=== PATIENT | female | born 1945 | race Caucasian/White ===

== ENCOUNTER 2018-08-05 21:44 | Inpatient (IN) | payer OTHER, MEDICARE ==
[2018-08-05 23:55] LABS: ALT (SGPT) 20 U/L (8-55); AST (SGOT) 29 U/L (5-34); Alkaline Phosphatase 77 U/L (40-150); Anion Gap 16 mmol/L (10-20); BUN (Urea Nitrogen) 12 mg/dL (9.8-20.1); Bilirubin, Total 0.6 mg/dL (0.2-1.2); Calc. Creatinine Clearance 0 mL/min (70-130); Calcium 9.5 mg/dL (7.8-10.44); Carbon Dioxide 27 mmol/L (23-31); Chloride 103 mmol/L (98-107); Estimated GFR-MDRD 85; Globulin 2.8 g/dL (2.4-3.5); Glucose 93 mg/dL (83-110); Potassium 3.7 mmol/L (3.5-5.1); Protein, Total 6.8 g/dL (6.0-8.3); Sodium 142 mmol/L (136-145)
[2018-08-06] MEDS ORDERED: Morphine 4 MG/ML VIAL ONE (01:10)
[2018-08-06 02:31] VITALS: BMI 27.0
[2018-08-06] MEDS ORDERED: Ondansetron ODT 4 MG TAB SL PRN (02:46)
[2018-08-06] MEDS ORDERED: Ondansetron HCl/PF 4 MG/2 ML Vial IVP PRN (02:46)
[2018-08-06] MEDS ORDERED: Sodium Chloride 0.9% 1,000 ML IV SCH ×2 (02:46→08:00)
[2018-08-06] MEDS ORDERED: Acetaminophen 325 MG TAB PO PRN ×2 (02:46→07:49)
[2018-08-06] MEDS ORDERED: HYDROcodone/Acetaminophen 5/325 mg Tablet PO PRN ×2 (02:46)
[2018-08-06] MEDS ORDERED: Morphine 4 MG/ML VIAL IV PRN (02:48)
[2018-08-06] MEDS ORDERED: Senokot 8.6 MG TAB PO PRN (07:49)
[2018-08-06] MEDS ORDERED: Loperamide HCl 2 MG CAP PO PRN (07:49)
[2018-08-06] MEDS ORDERED: Sodium Chloride 0.65% Nasal 44 ML BOT EA NARE PRN (07:49)
[2018-08-06] MEDS ORDERED: Diabetic Tussin 200 MG/10 ML UDCUP PO PRN (07:49)
[2018-08-06] MEDS ORDERED: Eucerin (Mineral Oil/Petrolatum,White) 30 gm Jar TOP PRN (07:49)
[2018-08-06] MEDS ORDERED: Loratadine 10 MG TAB PO PRN (07:49)
[2018-08-06] MEDS ORDERED: Mag-Al 1200 mg/1200 mg/30 ML UDCUP PO PRN (07:49)
[2018-08-06] MEDS ORDERED: Zolpidem Tartrate 5 MG TAB PO PRN (07:49)
[2018-08-06] MEDS ORDERED: Chloraseptic Spray 180 ml Bottle PO PRN (07:49)
[2018-08-06] MEDS ORDERED: Milk Of Magnesia 30 ML UDCUP PO PRN (07:49)
[2018-08-06] MEDS ORDERED: Artificial Tears 18 DROP/0.9 ML EA EYE PRN (07:49)
[2018-08-06] MEDS ORDERED: Morphine 4 MG/ML Carpuject SLOW IVP PRN (07:53)
[2018-08-06] MEDS: Atenolol 50 MG TAB PO SCH (08:18)
[2018-08-06] MEDS: Lisinopril/Hydrochlorothiazide 20 mg/12.5 mg Tablet PO SCH (08:19)
[2018-08-06] MEDS: Rosuvastatin 5 MG TAB PO SCH (09:09)
--- NOTE | 2018-08-06 12:21 | HP ---
PRIMARY CARE PHYSICIAN: City call admission. REASON FOR ADMISSION: Transfer from [facility] for mediastinal and abdominal mass. HISTORY OF PRESENT ILLNESS: A 73-year-old female who has underlying history of hypertension and dysl ipidemia. She was having vague upper abdominal pain for about a week. She reports that pain started last Tuesday, which was gradually getting worse over the weekend. The patient saw her primary care arianna garcia on Tuesday and she was given some antacids. The patient was not improving and that is why she went again on Tuesday and she was given another antacid prescriptions. Patient did not have any improvement and she was instructed that if pain is getting worse, then she needs to come to emergency room for evaluation. Patient did not have any constipation, diarrhea. She denies any UTI symptoms. She denies any urinar y symptoms. She denies any back pain. She denies any chest pain, palpitations, shortness of breath. She denies any night sweats. She denies any weight loss. She denies any lower extremity edema. The patient is feeling up to her normal. She is only smoking 2-3 cigarettes on a daily basis. Last night, the patient was evaluated at [facility] where patient had CT of the abdomen and p brandin, which showed 10 x 7 x 7 cm mediastinal mass, possibly subcarinal renal mass versus enlarged ly mph node, 3.1 cm and there was abdominal large hypodense mass in maximilian hepatis extending into gastroh epatic ligament, which is 5.5 x 5 cm and two other masses 2.4 cm in uncinate process of the pancreas as well as right adnexa. Patient was admitted to oncology floor. The patient's pain was controlled. REVIEW OF SYSTEMS: The following complete review of systems was negative, unless otherwise mentioned in the HPI or below: Constitutional: Weight loss or gain, ability to conduct usual activities. Skin: Rash, itching. Eyes: Double vision, pain. ENT/Mouth: Nose bleeding, neck stiffness, pain, tenderness. Cardiovascular: Palpitations, dyspnea on exertion, orthopnea. Respiratory: Shortness of breath, wheezing, cough, hemoptysis, fever or night sweats. Gastrointestinal: Poor appetite, abdominal pain, heartburn, nausea, vomiting, constipation, or diarr hea. Genitourinary: Urgency, frequency, dysuria, nocturia. Musculoskeletal: Pain, swelling. Neurologic/Psychiatric: Anxiety, depression. Allergy/Immunologic: Skin rash, bleeding tendency. Please see my HPI for pertinent positive and negative. All other review of systems reviewed and nega tive except as mentioned in the HPI. ALLERGIES: No known drug allergy. CURRENT HOME MEDICATIONS: Atenolol 100 mg p.o. daily, hydrochlorothiazide 12.5 mg p.o. daily, Cresto r 10 mg p.o. daily. PAST MEDICAL HISTORY: History of diverticulitis and diverticulosis, hypertension, dyslipidemia. PAST SURGICAL HISTORY: Partial hysterectomy, appendicectomy, tonsillectomy, colonoscopy and polypect dionne. PAST PSYCHIATRIC HISTORY: Reviewed and negative. SOCIAL HISTORY: Patient smokes about 2-3 cigarettes on a daily basis. She denies any alcohol abuse. She denies any other illicit drug abuse. She lives at home with family. FAMILY HISTORY: No strong family history of premature coronary artery disease, stroke or cancer. EMERGENCY ROOM COURSE: The patient was given morphine 4 mg at [facility], IV fluid, Zofran a nd potassium chloride. PHYSICAL EXAMINATION: VITAL SIGNS: On arrival, blood pressure 192/99, pulse 81, respiratory rate 18, temperature 97.7, sat uration 92% on room air, weight 72.5 kilograms. GENERAL: Patient is currently alert, awake, in no obvious acute distress. HEENT: Head: Normocephalic, atraumatic. Eyes: Pupils round, reactive to light. Extraocular muscl e intact. ENT: Oropharynx within normal limits. Moist mucous membranes. No oral lesion, no pharyn geal erythema, no exudate. NECK: Supple, no JVD, no thyromegaly, no carotid bruit, no jugular venous distention. LUNGS: Clear to auscultation without any rhonchi or rales. CARDIAC: S1, S2 regular. No murmur, no gallop, no rub. ABDOMEN: Soft, bowel sounds present. Some palpable mass noted in right upper quadrant, no peritonea l sign, no guarding, no rigidity, no rebound, no suprapubic tenderness. BACK: Unremarkable, no CVA tenderness. EXTREMITIES: Upper extremity, passive movement of all joints are normal. Lower extremity, no edema. Good distal pulsation. SKIN: No skin rash. HEMATOLOGICAL: No lymphadenopathy. PSYCHIATRIC: Normal affect. SIGNIFICANT LABORATORY DATA AND IMAGING: Blood tests done at [facility] reviewed by me. CT of the abdomen done at [facility] reported as 10 x 7 x 7 cm mediastinal mass, subcarinal mass , enlarged lymph node 3.1 cm, abdominal large hypodense mass at the maximilian hepatis which is 5.5 x 5 cm , 2.4 cm uncinate process mass in pancreas, right adnexal mass. CBC: WBC 11.6, hemoglobin 15.1, platelet 246. BMP: Sodium 140, potassium 2.9, chloride 100, carbon dioxide 26, anion gap 17, glucose 97, BUN 18, creatinine 0.7, bilirubin 0.6, AST 28, ALT 26, alkalin e phosphatase 73, protein 6.9, albumin 3.9, lipase 112. CK 60, CK-MB 2.1, troponin 0.010. Urinalysi s, blood moderate. ASSESSMENT AND PLAN: 1. Abdominal pain likely due to multiple abdominal mass. 2. Mediastinal mass with lymphadenopathy. 3. Multiple abdominal mass. 4. Hypertension. 5. Hypokalemia. 6. Dyslipidemia. DISCUSSION: This patient has a mediastinal mass as well as upper abdominal mass as well as lymphaden opathy. At this point, suspecting for lymphoma, metastatic disease is also possible from lymphoma. Differential diagnosis is very vague. At this point, we will consult Oncology. This patient will ne ed a tissue biopsy for definitive diagnosis. We will check LDH, CBC, CMP, flow cytometry, serum prot ein electrophoresis. We will keep her n.p.o. after midnight for possible biopsy. We will check hepa titis profile. We will resume patient's home medication and replace potassium. Deep venous thrombosis prophylaxis. Sequential compression devices boots. Gastrointestinal prophyla xis, Protonix 40 mg p.o. daily. CODE STATUS: The patient is FULL CODE. The patient is making her decision by herself. Her daughter is surrogate decision maker. Disposition plan based on clinical course. If patient needs more hospitalization for diagnostic reas on, then we may consider changing to inpatient status.
[2018-08-06] MEDS: NS 0.9% w/ 20 MEQ KCL 1,000 ML/1,000 ML BAG IV SCH (12:54)
[2018-08-06] MEDS: hydrALAZINE 20 MG/ML VIAL SLOW IVP PRN (16:50)
[2018-08-07] MEDS: NS 0.9% w/ 20 MEQ KCL 1,000 ML/1,000 ML BAG IV SCH (01:21)
[2018-08-07 04:29] LABS: #Eosinphils 0.1 thou/uL (0.0-0.7); #Lymphocytes 1.1 thou/uL (1.20-3.40); #Monocytes 0.9 thou/uL (0.11-0.59); #Neutrophils 7.3 thou/uL (1.40-6.50); %Basophils 0.2 % (0.0-1.0); %Eosinophils 1.5 % (0.0-10.0); %Lymphocytes 11.5 % (21.0-51.0); %Monocytes 9.1 % (0.0-10.0); %Neutrophils 77.7 % (42.0-75.0); Hemoglobin 12.8 g/dL (12.0-16.0); Mean Corpuscular HGB CONC 33.8 g/dL (32.0-36.0); Mean Corpuscular Volume 97.7 fL (78.0-98.0); Mean Platelet Volume 7.6 fL (7.4-10.4); Platelet Count 248 thou/uL (130-400); RBC Distribution Width 12.5 % (11.5-14.5); Red Blood Cell (RBC) Count 3.87 mill/uL (4.20-5.40); White Blood Cell (WBC) Count 9.4 thou/uL (4.8-10.8)
[2018-08-07 04:48] LABS: ALT (SGPT) 16 U/L (8-55); AST (SGOT) 22 U/L (5-34); Albumin 3.5 g/dL (3.4-4.8); Alkaline Phosphatase 64 U/L (40-150); Anion Gap 11 mmol/L (10-20); BUN (Urea Nitrogen) 12 mg/dL (9.8-20.1); Bilirubin, Total 0.6 mg/dL (0.2-1.2); Calc. Creatinine Clearance 88 mL/min (70-130); Calcium 9.3 mg/dL (7.8-10.44); Carbon Dioxide 29 mmol/L (23-31); Chloride 102 mmol/L (98-107); Estimated GFR-MDRD Greater than 90; Globulin 2.3 g/dL (2.4-3.5); Glucose 103 mg/dL (83-110); Potassium 3.1 mmol/L (3.5-5.1); Protein, Total 5.8 g/dL (6.0-8.3); Sodium 139 mmol/L (136-145)
[2018-08-07 04:52] LABS: INR-International Normal Ratio 0.9; Prothrombin Time 12.7 SEC (12.0-14.7)
[2018-08-07 04:54] LABS: PTT 22.8 SEC (22.9-36.1)
[2018-08-07 05:04] LABS: HBSAg Index 0.18 S/CO (0-0.99); Hep A IgM AB Non-Reactive (NonReactive); Hep A IgM S/CO 0.09 S/CO (0-0.79); Hep B Surf Ag Non-Reactive S/CO (NonReactive); Hep C IgG Ab Non-Reactive (NonReactive); Hep C Index 0.18 S/CO (0-0.79); Hepatitis B Core IGM Abs Non-Reactive (NonReactive)
[2018-08-07] MEDS: Morphine 4 MG/ML VIAL SLOW IVP PRN (06:17)
[2018-08-07] MEDS ORDERED: Potassium Chloride 20 MEQ/100 ML PREMIX BAG IVPB SCH (07:00)
--- NOTE | 2018-08-07 07:57 | CON ---
DATE OF CONSULTATION: 08/06/2018 REASON FOR CONSULTATION: Mediastinal and abdominal masses. HISTORY: This is a 73-year-old, previously quite healthy, female who noted bilateral upper abdominal pain 6 days ago. Gradually, this kept on getting worse in spite of treatment with antacid s. Eventually, she presented to [facility] emergency Room where CT scan of chest, abdomen, and pelvis showed a 10 x 7 x 7 cm mediastinal mass and a 5 x 5 cm mass in the maximilian hepatis area. A 2.4 cm mass was also noted in the uncinate process of the pancreas and right adnexa was quite promin ent. The patient was subsequently transferred to [facility]. She does not have any signifi cant symptoms other than the upper abdominal pain. She has not lost any weight and denies of night s weats and fever. There is no change in her bowel habits. Denies of headache and bone pain. The pat juni had a normal mammogram about a year ago and had colonoscopy during the past 12 months, which was negative except for polyps. She was asked to have a repeat colonoscopy in 3-5 years. OUTPATIENT MEDICATIONS: Atenolol 100 mg p.o. daily, hydrochlorothiazide 12.5 mg p.o. daily, and [place] tor 10 mg p.o. daily. PAST MEDICAL HISTORY: Positive for diverticulitis, hypertension, and dyslipidemia. PAST SURGICAL HISTORY: Include hysterectomy, appendectomy, tonsillectomy, and polypectomy from colon . PERSONAL, FAMILY AND SOCIAL HISTORY: Patient smoked 2-3 cigarettes daily. She does not drink, denie s recreational drug use. She lives at home with her family. REVIEW OF SYSTEMS: As above. PHYSICAL EXAMINATION: GENERAL: The patient appears appropriate for her age and is alert and oriented. She is in no acute distress at the time of this examination. VITAL SIGNS: Temperature 97.5, pulse 78, blood pressure 143/67, O2 saturation 91%. Height 5 feet an d 3.5 inches, weight 155 pounds. HEENT: Unremarkable. LYMPH NODES: Not palpable in cervical, supraclavicular, axillary, or inguinal area. CHEST: Clear to percussion and auscultation. HEART: Regular rhythm. S1 and S2. No murmur. BREASTS: Without mass or nipple retraction. ABDOMEN: Soft. No hepatosplenomegaly, no palpable masses. EXTREMITIES: Without pedal edema. LABORATORY DATA: CBC report not available in the chart at the time of this dictation. Chemistry pro file shows normal electrolytes, BUN, creatinine, glucose, calcium, and liver enzymes. LDH has not be en done. ASSESSMENT AND RECOMMENDATIONS: This patient definitely has some type of malignancy. The CT scan fr [facility] was reviewed with radiologist. The radiologist did not feel that he can put a needle in the mediastinum. The maximilian hepatis area mass could be potentially biopsiable. However, it is felt would be difficult with high risk of bleeding because would have to go through both right and left lo be of liver before we could access the upper abdominal mass with a biopsy needle. I will request sima hicks surgical consultation with Dr. Guzman to see if he is willing to biopsy the mediastinal mass via . The other option could be through a laparoscopic biopsy of the abdominal mass. I am not fabrizio e why the patient's CBC and other lab studies that were ordered are not on the chart. I will talk to lab about this issue in a few minutes. Thanks very much for asking me to participate in this patient's care. The patient will be followed b homa Klein.
[2018-08-07] MEDS: Atenolol 50 MG TAB PO SCH (08:55)
[2018-08-07] MEDS: Lisinopril/Hydrochlorothiazide 20 mg/12.5 mg Tablet PO SCH (08:55)
[2018-08-07] MEDS: Rosuvastatin 5 MG TAB PO SCH (08:56)
--- NOTE | 2018-08-07 10:07 | PDOC.PN ---
- Subjective Encounter Start Date: 08/07/18 Encounter Start Time: 07:10 -: old records requested/rev Patient seen and examined. No new complaints. No overnight events - Objective Resuscitation Status: Resuscitation Status FULL:Full Resuscitation MAR Reviewed: Yes Vital Signs & Weight: Vital Signs (12 hours) Temp Pulse Resp BP BP Pulse Ox 08/07/18 08:55 80 174/79 H 08/07/18 08:02 97.4 F L 80 174/79 H 92 L 08/07/18 05:42 90 L 08/07/18 04:39 97.4 F L 80 20 151/66 H 88 L 08/07/18 00:12 97.5 F L 77 20 129/62 86 L Weight Weight 155 lb 1 oz I&O: 08/06/18 08/07/18 08/08/18 06:59 06:59 06:59 Intake Total 600 4510 Balance 600 4510 Result Diagrams: 08/07/18 04:05 08/07/18 04:05 Phys Exam - Physical Examination Constitutional: NAD HEENT: PERRLA, moist MMs, sclera anicteric Neck: no JVD, supple Respiratory: no wheezing, no rales, no rhonchi Cardiovascular: RRR, no significant murmur, no rub Gastrointestinal: soft, non-tender, no distention, positive bowel sounds Musculoskeletal: no edema, pulses present Neurological: non-focal, normal sensation, moves all 4 limbs Lymphatic: no nodes Psychiatric: normal affect, A&O x 3 Skin: no rash, normal turgor Dx/Plan (1) Hypokalemia Code(s): E87.6 - HYPOKALEMIA Status: Acute (2) Lymphadenopathy Code(s): R59.1 - GENERALIZED ENLARGED LYMPH NODES Status: Acute (3) Mediastinal mass Status: Acute (4) Dyslipidemia Code(s): E78.5 - HYPERLIPIDEMIA, UNSPECIFIED Status: Chronic (5) Hypertension Code(s): I10 - ESSENTIAL (PRIMARY) HYPERTENSION Status: Chronic (6) Tobacco abuse Code(s): Z72.0 - TOBACCO USE Status: Chronic - Plan cont current plan of care, plan discussed w/ family * medication reviewed as below * symptomatic treatment. * change to inpt status * consult surgery for tissue biopsy * discussed with oncology * replace potassium Review of Systems - Review of Systems ENT: negative: Ear Pain, Ear Discharge, Nose Pain, Nose Discharge, Nose Congestion, Mouth Pain, Mouth Swelling, Throat Pain, Throat Swelling, Other Respiratory: negative: Cough, Dry, Shortness of Breath, Hemoptysis, SOB with Excertion, Pleuritic Pain, Sputum, Wheezing Cardiovascular: negative: chest pain, palpitations, orthopnea, paroxysmal nocturnal dyspnea, edema, light headedness, other Gastrointestinal: negative: Nausea, Vomiting, Abdominal Pain, Diarrhea, Constipation, Melena, Hematochezia, Other Genitourinary: negative: Dysuria, Frequency, Incontinence, Hematuria, Retention , Other Musculoskeletal: negative: Neck Pain, Shoulder Pain, Arm Pain, Back Pain, Hand Pain, Leg Pain, Foot Pain, Other Skin: negative: Rash, Lesions, Tyler, Bruising, Other - Medications/Allergies Allergies/Adverse Reactions: Allergies Allergy/AdvReac Type Severity Reaction Status Date / Time No Known Allergies Allergy Unverified 08/06/18 02:45 Medications: Current Medications Acetaminophen (Tylenol) 650 mg PO Q4H PRN PRN Reason: Headache/Fever or Pain Hydrocodone Bitart/Acetaminophen ([place] 10/325) 1 tab PO Q4H PRN PRN Reason: Moderate Pain (4-6) Al Hydroxide/Mg Hydroxide (Maalox) 30 ml PO Q6H PRN PRN Reason: Heartburn or Indigestion Artificial Tears (Tears Naturale) 0 drop EA EYE PRN PRN PRN Reason: Dry Eyes Atenolol (Tenormin) 100 mg PO DAILY [facility] Last Admin: 08/07/18 08:55 Dose: 100 mg Guaifenesin (Robitussin Sf) 200 mg PO Q4H PRN PRN Reason: Cough Lisinopril/HCTZ (Prinizide 20-12.5) 1 tab PO DAILY [facility] Last Admin: 08/07/18 08:55 Dose: 1 tab Hydralazine HCl (Apresoline) 10 mg SLOW IVP Q4H PRN PRN Reason: Systolic BP > 180 Last Admin: 08/06/18 16:50 Dose: 10 mg Potassium Chloride/Sodium Chloride (Ns 0.9% W/ 20 Meq Kcl) 1,000 ml in 1,000 mls @ 75 mls/hr IV .[id number] [facility] Last Admin: 08/07/18 01:21 Dose: 1,000 mls Loperamide HCl (Imodium) 2 mg PO PRN PRN PRN Reason: Diarrhea/Loose Stools Loratadine (Claritin) 10 mg PO DAILYPRN PRN PRN Reason: Sinus Symptoms Magnesium Hydroxide (Milk Of Magnesium) 30 ml PO DAILYPRN PRN PRN Reason: Constipation Mineral Oil/White Petrolatum (Eucerin Cream) 0 gm TOP BIDPRN PRN PRN Reason: Dry Skin Morphine Sulfate (Morphine) 4 mg SLOW IVP Q4H PRN PRN Reason: Pain Last Admin: 08/07/18 06:17 Dose: 4 mg Pantoprazole Sodium (Protonix) 40 mg PO DAILY [facility] Last Admin: 08/07/18 08:56 Dose: 40 mg Phenol (Chloraseptic [place] 180 Ml Bot) 0 ml PO PRN PRN PRN Reason: Sore Throat Rosuvastatin Calcium (Crestor) 5 mg PO DAILY [facility] Last Admin: 08/07/18 08:56 Dose: 5 mg Senna (Senokot) 2 tab PO HSPRN PRN PRN Reason: Constipation Sodium Chloride (Flush - Normal Saline) 10 ml IVF Q12HR [facility] Last Admin: 08/07/18 08:56 Dose: 10 ml Sodium Chloride (Flush - Normal Saline) 10 ml IVF PRN PRN PRN Reason: Saline Flush Sodium Chloride ([place] Nasal [place] 0.65%) 0 ml EA NARE QIDPRN PRN PRN Reason: Nasal Congestion Zolpidem Tartrate (Ambien) 5 mg PO HSPRN PRN PRN Reason: Insomnia
[2018-08-07] MEDS ORDERED: Potassium Chloride 20 MEQ TAB PO SCH (12:00)
--- NOTE | 2018-08-07 14:55 | CON ---
DATE OF CONSULTATION: 08/07/2018 REQUESTING PHYSICIAN: Dr. Brennan. CHIEF COMPLAINT: Epigastric pain. HISTORY OF PRESENT ILLNESS: The patient is a 73-year-old smoker who about a week or so ago began having epigastric discomfort. It radiated around the sides towards her back. She attempted to achieve relief with antacids to no avail, but over the weekend it gradually got bad enough that she presented to the hospital. CT scanning of the chest and abdomen demonstrated bulky adenopathy with one accumulation of lymph nodes in the upper abdomen around the aorta and one in the mediastinum. The patient about a week previously had some left hip and back pain with some sciatic type radicular symptoms on the left side that has since resolved after some injections and oral prednisone. She describes having had an outpatient MRI that showed a small compression fracture there. I do not have access at this time to that report or those films. PAST MEDICAL HISTORY: Significant for hypertension and hyperlipidemia and she has had a previous bout of diverticulitis. HOME MEDICATIONS: Atenolol 100 mg a day, hydrochlorothiazide 12.5 mg a day, and Crestor 10 mg a day. ALLERGIES: She denies any medical allergies. SOCIAL HISTORY: She describes minimal smoking currently. REVIEW OF SYSTEMS: Negative for any weight loss, any changing moles or noticing any masses anywhere other than the sciatic type pain she described. She denies any new aches or pains in her bones or joints. PHYSICAL EXAMINATION: GENERAL: She is in no distress. Height 5 feet 3-1/2 inches, 155 pounds. VITAL SIGNS: Heart rate is 80, blood pressure 174/79, room air sats are in the low 90s. NECK: She has no cervical or supraclavicular lymphadenopathy. CHEST: In the midline, her sternal notch seems somewhat prominent and fold that she says it feels normal to her. PELVIC: She has no point tenderness in her lower back or left hip. IMAGING: Her CT scan show a bulky periaortic adenopathy in the upper abdomen and mediastinal adenopathy extending from the akbar up to the right peritracheal region at the upper portion of the chest without any obvious lung masses. LABORATORY DATA: She has a white count of 9.4, hemoglobin 12.8, hematocrit 37.8 , platelet count 248,000. PT is 12.7 with INR 0.9 and a PTT of 22.8. Chemistries show normal electrolytes, BUN 12, creatinine 0.68. Normal liver function studies. Albumin of 4.0. IMPRESSION AND PLAN: Probable malignancy, I think cervical mediastinal approach would probably give the easiest access to obtain enough tissue to establish a tissue diagnosis and potentially Port-A-Cath placement to the patient and her daughter. MTDD
[2018-08-07] MEDS: hydrALAZINE 20 MG/ML VIAL SLOW IVP PRN (17:15)
[2018-08-08] MEDS: Morphine 4 MG/ML VIAL SLOW IVP PRN (00:06)
[2018-08-08] MEDS: Lisinopril/Hydrochlorothiazide 20 mg/12.5 mg Tablet PO SCH (07:30)
[2018-08-08] MEDS: Atenolol 50 MG TAB PO SCH (07:30)
[2018-08-08] MEDS: Rosuvastatin 5 MG TAB PO SCH (07:30)
[2018-08-08] MEDS ORDERED: Fentanyl 100 MCG/2 ML VIAL ONE (08:06)
[2018-08-08] MEDS ORDERED: Midazolam HCl 2 mg/2 ml Vial ONE (08:06)
[2018-08-08] MEDS ORDERED: SUGAMMADEX SODIUM 500 MG/5 ML VIAL ONE (09:41)
[2018-08-08] MEDS ORDERED: SUGAMMADEX SODIUM 200 MG/2 ML VIAL ONE (09:42)
--- NOTE | 2018-08-08 09:58 | PDOC.PN ---
- Subjective Encounter Start Date: 08/08/18 Encounter Start Time: 09:57 Patient seen and examined. No new complaints. No overnight events plan for surgical biopsy today - Objective Resuscitation Status: Resuscitation Status FULL:Full Resuscitation MAR Reviewed: Yes Vital Signs & Weight: Vital Signs (12 hours) Temp Pulse Resp BP Pulse Ox 08/08/18 07:40 97.6 F 70 20 136/68 92 L 08/08/18 07:30 72 08/08/18 04:43 97.8 F 72 20 145/71 H 88 L 08/08/18 02:34 91 L 08/07/18 23:58 97.7 F 74 16 148/72 H 90 L Weight Weight 155 lb 1 oz I&O: 08/07/18 08/08/18 08/09/18 06:59 06:59 06:59 Intake Total 4510 1260 Balance 4510 1260 Result Diagrams: 08/07/18 04:05 08/07/18 04:05 Phys Exam - Physical Examination Constitutional: NAD HEENT: PERRLA, moist MMs, sclera anicteric Neck: no JVD, supple Respiratory: no wheezing, no rales, no rhonchi Cardiovascular: RRR, no significant murmur, no rub Gastrointestinal: soft, non-tender, no distention, positive bowel sounds Musculoskeletal: no edema, pulses present Neurological: non-focal, normal sensation, moves all 4 limbs Psychiatric: normal affect, A&O x 3 Skin: no rash, normal turgor Dx/Plan (1) Hypokalemia Code(s): E87.6 - HYPOKALEMIA Status: Acute (2) Lymphadenopathy Code(s): R59.1 - GENERALIZED ENLARGED LYMPH NODES Status: Acute (3) Mediastinal mass Status: Acute (4) Dyslipidemia Code(s): E78.5 - HYPERLIPIDEMIA, UNSPECIFIED Status: Chronic (5) Hypertension Code(s): I10 - ESSENTIAL (PRIMARY) HYPERTENSION Status: Chronic (6) Tobacco abuse Code(s): Z72.0 - TOBACCO USE Status: Chronic - Plan cont current plan of care * medication reviewed as below * symptomatic treatment * today surgical biopsy * monitor today post op * follow up on pathology report. Review of Systems - Review of Systems ENT: negative: Ear Pain, Ear Discharge, Nose Pain, Nose Discharge, Nose Congestion, Mouth Pain, Mouth Swelling, Throat Pain, Throat Swelling, Other Respiratory: negative: Cough, Dry, Shortness of Breath, Hemoptysis, SOB with Excertion, Pleuritic Pain, Sputum, Wheezing Cardiovascular: negative: chest pain, palpitations, orthopnea, paroxysmal nocturnal dyspnea, edema, light headedness, other Gastrointestinal: negative: Nausea, Vomiting, Abdominal Pain, Diarrhea, Constipation, Melena, Hematochezia, Other Genitourinary: negative: Dysuria, Frequency, Incontinence, Hematuria, Retention , Other Musculoskeletal: negative: Neck Pain, Shoulder Pain, Arm Pain, Back Pain, Hand Pain, Leg Pain, Foot Pain, Other Skin: negative: Rash, Lesions, Tyler, Bruising, Other - Medications/Allergies Allergies/Adverse Reactions: Allergies Allergy/AdvReac Type Severity Reaction Status Date / Time No Known Allergies Allergy Unverified 08/06/18 02:45 Medications: Current Medications Acetaminophen (Tylenol) 650 mg PO Q4H PRN PRN Reason: Headache/Fever or Pain Hydrocodone Bitart/Acetaminophen ([place] 10/325) 1 tab PO Q4H PRN PRN Reason: Moderate Pain (4-6) Al Hydroxide/Mg Hydroxide (Maalox) 30 ml PO Q6H PRN PRN Reason: Heartburn or Indigestion Artificial Tears (Tears Naturale) 0 drop EA EYE PRN PRN PRN Reason: Dry Eyes Atenolol (Tenormin) 100 mg PO DAILY [facility] Last Admin: 08/08/18 07:30 Dose: 100 mg Guaifenesin (Robitussin Sf) 200 mg PO Q4H PRN PRN Reason: Cough Lisinopril/HCTZ (Prinizide 20-12.5) 1 tab PO DAILY [facility] Last Admin: 08/08/18 07:30 Dose: 1 tab Hydralazine HCl (Apresoline) 10 mg SLOW IVP Q4H PRN PRN Reason: Systolic BP > 180 Last Admin: 08/07/18 17:15 Dose: 10 mg Loperamide HCl (Imodium) 2 mg PO PRN PRN PRN Reason: Diarrhea/Loose Stools Loratadine (Claritin) 10 mg PO DAILYPRN PRN PRN Reason: Sinus Symptoms Magnesium Hydroxide (Milk Of Magnesium) 30 ml PO DAILYPRN PRN PRN Reason: Constipation Mineral Oil/White Petrolatum (Eucerin Cream) 0 gm TOP BIDPRN PRN PRN Reason: Dry Skin Morphine Sulfate (Morphine) 4 mg SLOW IVP Q4H PRN PRN Reason: Pain Last Admin: 08/08/18 00:06 Dose: 4 mg Pantoprazole Sodium (Protonix) 40 mg PO DAILY [facility] Last Admin: 08/08/18 07:30 Dose: 40 mg Phenol (Chloraseptic [place] 180 Ml Bot) 0 ml PO PRN PRN PRN Reason: Sore Throat Rosuvastatin Calcium (Crestor) 5 mg PO DAILY [facility] Last Admin: 08/08/18 07:30 Dose: 5 mg Senna (Senokot) 2 tab PO HSPRN PRN PRN Reason: Constipation Sodium Chloride (Flush - Normal Saline) 10 ml IVF Q12HR [facility] Last Admin: 08/07/18 20:31 Dose: 10 ml Sodium Chloride (Flush - Normal Saline) 10 ml IVF PRN PRN PRN Reason: Saline Flush Sodium Chloride ([place] Nasal [place] 0.65%) 0 ml EA NARE QIDPRN PRN PRN Reason: Nasal Congestion Zolpidem Tartrate (Ambien) 5 mg PO HSPRN PRN PRN Reason: Insomnia
--- NOTE | 2018-08-08 10:32 | RAD ---
CHEST ONE VIEW: History: 73-year-old female with history of status post CME. FINDINGS: Heart size is within normal limits. There is evidence for a superior mediastinal mass with nodular fu llness in the right paratracheal region. There is some atherosclerosis of the aorta. NO confluent pne umonia, overt edema, or pleural effusion. IMPRESSION: Evidence for a right sided mediastinal mass. Further evaluation with CT scan is suggested. No old enedelia dies. Code T
--- NOTE | 2018-08-08 10:51 | OP ---
DATE OF PROCEDURE: 08/08/2018 PROCEDURE PERFORMED: Cervical/mediastinal exploration. PREOPERATIVE DIAGNOSIS: Mediastinal lymphadenopathy. 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 SURGEON: Erick Gerard M.D. ANESTHESIA: General endotracheal. INDICATIONS: The patient is a 73-year-old smoker, who presented with epigastric discomfort. She was found to have bulky mediastinal adenopathy as well as bulky periaortic adenopathy in her upper abdom en. She is now taken to the operating room for a CME to establish a tissue diagnosis. FINDINGS: Bulky adenopathy. 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 NARRATIVE REPORT: After informed consent was obtained, the patient was taken to the operating room a nd placed in supine position on the operating table. After the induction of general anesthesia, the patient's neck was extended and her neck and chest were prepped and draped in sterile fashion. A cur vilinear incision was made transversely about a fingerbreadth above the sternal notch. It was kecia d through the subcutaneous tissue and platysma with the electrocautery. The strap muscles were divid ed longitudinally in the midline. The pretracheal space was developed first sharply and then with bl unt dissection. Mediastinoscope was inserted and bulky adenopathy in the right anterolateral paratra cheal position was immediately encountered. Blunt dissection was used to free up 1 lymph node from t he rest of the matted mass, augmented with the suction cautery. Biopsy forceps were then used to pie cemeal extract that lymph node. The wound was inspected for gross hemostasis and then packed off whi le the specimen was sent out to and examined by the pathologist. The packing was removed, and when t he pathologist confirmed that there was sufficient viable material for study, the wound was closed us ing 3-0 Vicryl, which was tacked back to the edge of the strap muscles and reapproximate the subcutan eous tissue. A 5-0 Vicryl subcuticular suture and Steri-Strips was used for the skin. The wound was dressed. The patient was then taken to the recovery area in stable condition.
[2018-08-08] MEDS ORDERED: Lidocaine 1% PF 5 ML VIAL ONE (13:55)
[2018-08-08] MEDS ORDERED: Dexamethasone 20 MG/5 ML VIAL ONE (13:55)
[2018-08-08] MEDS ORDERED: Vecuronium 10 MG VIAL ONE (13:55)
[2018-08-08] MEDS ORDERED: PHENYLEPHRINE-NS 100 MCG/ML 10 ML SYRINGE ONE (13:55)
[2018-08-08] MEDS ORDERED: PROPOFOL 200 MG/20 ML VIAL ONE (13:55)
[2018-08-09] MEDS: Lisinopril/Hydrochlorothiazide 20 mg/12.5 mg Tablet PO SCH (09:24)
[2018-08-09] MEDS: Polyethylene Glycol 3350 17 GM Packet PO SCH (09:24)
[2018-08-09] MEDS: Atenolol 50 MG TAB PO SCH (09:25)
[2018-08-09] MEDS: Metamucil PACK PO SCH (09:25)
[2018-08-09] MEDS: Rosuvastatin 5 MG TAB PO SCH (09:25)
[2018-08-09] MEDS: Docusate 100 MG CAP PO SCH (09:25)
--- NOTE | 2018-08-09 10:36 | PDOC.PN ---
- Subjective Encounter Start Date: 08/09/18 Encounter Start Time: 07:00 Patient seen and examined. No new complaints. No overnight events - Objective Resuscitation Status: Resuscitation Status FULL:Full Resuscitation MAR Reviewed: Yes Vital Signs & Weight: Vital Signs (12 hours) Temp Pulse Resp BP Pulse Ox 08/09/18 10:06 97.8 F 78 16 136/71 96 08/09/18 09:25 83 08/09/18 09:24 83 Weight Weight 155 lb 1 oz I&O: 08/08/18 08/09/18 08/10/18 06:59 06:59 06:59 Intake Total 1260 1960 Balance 1260 1960 Result Diagrams: 08/07/18 04:05 08/07/18 04:05 Phys Exam - Physical Examination Constitutional: NAD HEENT: PERRLA, moist MMs, sclera anicteric Neck: no JVD, supple Respiratory: no wheezing, no rales, no rhonchi Cardiovascular: RRR, no significant murmur, no rub Gastrointestinal: soft, non-tender, no distention, positive bowel sounds Musculoskeletal: no edema, pulses present Neurological: non-focal, normal sensation, moves all 4 limbs Lymphatic: no nodes Psychiatric: normal affect, A&O x 3 Skin: no rash, normal turgor Dx/Plan (1) Hypokalemia Code(s): E87.6 - HYPOKALEMIA Status: Acute (2) Lymphadenopathy Code(s): R59.1 - GENERALIZED ENLARGED LYMPH NODES Status: Acute (3) Mediastinal mass Status: Acute (4) Dyslipidemia Code(s): E78.5 - HYPERLIPIDEMIA, UNSPECIFIED Status: Chronic (5) Hypertension Code(s): I10 - ESSENTIAL (PRIMARY) HYPERTENSION Status: Chronic (6) Tobacco abuse Code(s): Z72.0 - TOBACCO USE Status: Chronic - Plan cont current plan of care * At this point, I would prefer her to stay until pathology reports come back and pt also prefer that way * based on pathology report, oncology to decide if chemotherapy/radiation needed * ? mediport needed ?? 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 Review of Systems - Review of Systems Eyes: negative: Pain, Vision Change, Conjunctivae Inflammation, Eyelid Inflammation, Redness, Other ENT: negative: Ear Pain, Ear Discharge, Nose Pain, Nose Discharge, Nose Congestion, Mouth Pain, Mouth Swelling, Throat Pain, Throat Swelling, Other Respiratory: negative: Cough, Dry, Shortness of Breath, Hemoptysis, SOB with Excertion, Pleuritic Pain, Sputum, Wheezing Cardiovascular: negative: chest pain, palpitations, orthopnea, paroxysmal nocturnal dyspnea, edema, light headedness, other Gastrointestinal: negative: Nausea, Vomiting, Abdominal Pain, Diarrhea, Constipation, Melena, Hematochezia, Other Genitourinary: negative: Dysuria, Frequency, Incontinence, Hematuria, Retention , Other Musculoskeletal: negative: Neck Pain, Shoulder Pain, Arm Pain, Back Pain, Hand Pain, Leg Pain, Foot Pain, Other Skin: negative: Rash, Lesions, Tyler, Bruising, Other - Medications/Allergies Allergies/Adverse Reactions: Allergies Allergy/AdvReac Type Severity Reaction Status Date / Time No Known Allergies Allergy Unverified 08/06/18 02:45 Medications: Current Medications Acetaminophen (Tylenol) 650 mg PO Q4H PRN PRN Reason: Headache/Fever or Pain Hydrocodone Bitart/Acetaminophen ([place] 10/325) 1 tab PO Q4H PRN PRN Reason: Moderate Pain (4-6) Al Hydroxide/Mg Hydroxide (Maalox) 30 ml PO Q6H PRN PRN Reason: Heartburn or Indigestion Artificial Tears (Tears Naturale) 0 drop EA EYE PRN PRN PRN Reason: Dry Eyes Atenolol (Tenormin) 100 mg PO DAILY [facility] Last Admin: 08/09/18 09:25 Dose: 100 mg Docusate Sodium (Colace) 100 mg PO DAILY [facility] Last Admin: 08/09/18 09:25 Dose: 100 mg Guaifenesin (Robitussin Sf) 200 mg PO Q4H PRN PRN Reason: Cough Lisinopril/HCTZ (Prinizide 20-12.5) 1 tab PO DAILY [facility] Last Admin: 08/09/18 09:24 Dose: 1 tab Hydralazine HCl (Apresoline) 10 mg SLOW IVP Q4H PRN PRN Reason: Systolic BP > 180 Last Admin: 08/07/18 17:15 Dose: 10 mg Loperamide HCl (Imodium) 2 mg PO PRN PRN PRN Reason: Diarrhea/Loose Stools Loratadine (Claritin) 10 mg PO DAILYPRN PRN PRN Reason: Sinus Symptoms Magnesium Hydroxide (Milk Of Magnesium) 30 ml PO DAILYPRN PRN PRN Reason: Constipation Mineral Oil/White Petrolatum (Eucerin Cream) 0 gm TOP BIDPRN PRN PRN Reason: Dry Skin Morphine Sulfate (Morphine) 4 mg SLOW IVP Q4H PRN PRN Reason: Pain Last Admin: 08/08/18 00:06 Dose: 4 mg Pantoprazole Sodium (Protonix) 40 mg PO DAILY [facility] Last Admin: 08/09/18 09:25 Dose: 40 mg Phenol (Chloraseptic [place] 180 Ml Bot) 0 ml PO PRN PRN PRN Reason: Sore Throat Polyethylene Glycol (Miralax) 17 gm PO DAILY [facility] Last Admin: 08/09/18 09:24 Dose: 17 gm Psyllium Hydrophilic Mucilloid (Metamucil) 1 pk PO DAILY [facility] Last Admin: 08/09/18 09:25 Dose: 1 pk Rosuvastatin Calcium (Crestor) 5 mg PO DAILY [facility] Last Admin: 08/09/18 09:25 Dose: 5 mg Senna (Senokot) 2 tab PO HSPRN PRN PRN Reason: Constipation Sodium Chloride (Flush - Normal Saline) 10 ml IVF Q12HR [facility] Last Admin: 08/08/18 23:57 Dose: Not Given Sodium Chloride (Flush - Normal Saline) 10 ml IVF PRN PRN PRN Reason: Saline Flush Sodium Chloride ([place] Nasal [place] 0.65%) 0 ml EA NARE QIDPRN PRN PRN Reason: Nasal Congestion Zolpidem Tartrate (Ambien) 5 mg PO HSPRN PRN PRN Reason: Insomnia
[2018-08-09] MEDS: HYDROcodone/Acetaminophen 10/325 mg Tablet PO PRN (19:44)
[2018-08-10 08:25] VITALS: BP 147/70; TEMP 98
[2018-08-10] MEDS: Polyethylene Glycol 3350 17 GM Packet PO SCH (08:33)
[2018-08-10] MEDS: Metamucil PACK PO SCH (08:33)
[2018-08-10] MEDS: Lisinopril/Hydrochlorothiazide 20 mg/12.5 mg Tablet PO SCH (08:33)
[2018-08-10] MEDS: Docusate 100 MG CAP PO SCH (08:34)
[2018-08-10] MEDS: Atenolol 50 MG TAB PO SCH (08:34)
[2018-08-10] MEDS: Rosuvastatin 5 MG TAB PO SCH (08:34)
[2018-08-10] MEDS: HYDROcodone/Acetaminophen 10/325 mg Tablet PO PRN ×2 (09:57→14:06)
--- NOTE | 2018-08-10 12:24 | MRI ---
MRI OF BRAIN PERFORMED WITH AND WITHOUT CONTRAST ENHANCEMENT: HISTORY: Small cell lung cancer evaluation for brain metastases. FINDINGS: The ventricular and cisternal system shows some mild fairly age-appropriate atrophy. Areas of T2 and FLAIR signal change within the white matter are compatible with chronic white matter change. On the diffusion weighted sequence, there is no evidence of any areas of restricted diffusion to sugg est infarct or any type of mass within the brain. There are 2 calvarial lesions identified. One is in the left posterior parietal region which extends through the inner and outer tables of the skull w ith a soft tissue component extending into the scalp. Given the history, this is very suspicious for a lytic bone lesion measuring approximately 16 mm. There is a more subtle lesion involving the righ t parietal bone just at the level of midline which shows slight increased T1. This lesion measures 7 -8 mm in size. I do not see any other definitive skull lesions. The pituitary is normal in size and appearance. IMPRESSION: 1. Two calvarial bone lesions, one in the right parietal and one in the left parietal lobe very susp icious for lytic metastatic lesions given patient's history. Bone scan may be helpful in more comple te evaluation. 2. No evidence of any evidence for any intracranial metastatic disease. POS: TAI
--- NOTE | 2018-08-10 13:06 | PDOC.PN ---
- Subjective Encounter Start Date: 08/10/18 Encounter Start Time: 13:05 Ms. Conn was seen today in follow-up of mediastinal mass, and abdominal mass. She does not have any complaints. She has occasional pain in her chest and axilla. - Objective Resuscitation Status: Resuscitation Status FULL:Full Resuscitation MAR Reviewed: Yes Vital Signs & Weight: Vital Signs (12 hours) Temp Pulse Resp BP Pulse Ox 08/10/18 08:34 81 08/10/18 08:33 81 08/10/18 08:24 98.0 F 81 12 147/70 H 92 L 08/10/18 08:00 92 L Weight Weight 155 lb 1 oz I&O: 08/09/18 08/10/18 08/11/18 06:59 06:59 06:59 Intake Total 1959 1889 Balance 1959 1889 Result Diagrams: 08/07/18 04:05 08/07/18 04:05 Phys Exam - Physical Examination HEENT: PERRLA Respiratory: no wheezing, no rales, no rhonchi, clear to auscultation bilateral Cardiovascular: RRR, no significant murmur, no rub Gastrointestinal: soft, non-tender, no distention, positive bowel sounds Musculoskeletal: no edema Dx/Plan (1) Lymphadenopathy Code(s): R59.1 - GENERALIZED ENLARGED LYMPH NODES Status: Acute (2) Mediastinal mass Status: Acute (3) Hypertension Code(s): I10 - ESSENTIAL (PRIMARY) HYPERTENSION Status: Chronic - Plan * Mediastinal mass- this has been biopsied, and she plans to follow-up with Dr. Klein for further recommendations..
[2018-08-10 19:10] LABS: A/G Ratio 1.2 (0.7-1.7); Albumin 2.9 g/dL (2.9-4.4); Alpha 1 0.2 g/dL (0.0-0.4); Alpha 2 0.7 g/dL (0.4-1.0); Beta 0.8 g/dL (0.7-1.3); Gamma 0.8 g/dL (0.4-1.8); Globulin, Total 2.5 g/dL (2.2-3.9); M-Spike Not Observed g/dL (Not Observed)
--- NOTE | 2018-08-10 19:38 | DIS ---
DATE OF ADMISSION: 08/06/2018 DATE OF DISCHARGE: 08/10/2018 PRIMARY CARE PHYSICIAN: Karen alcocer. DISCHARGE DISPOSITION: Home. PRIMARY DISCHARGE DIAGNOSES: 1. Mediastinal mass. 2. Abdominal mass. 3. Poorly differentiated neuroendocrine tumor consistent with oat cell carcinoma of the lung. 4. Hypertension. 5. Dyslipidemia. DISCHARGE MEDICATIONS: Include [place] 10/325 one p.o. q.4 hours as needed for pain, Crestor 5 mg ivelisse y, Metamucil 660 g daily, omeprazole 40 mg daily, lisinopril/hydrochlorothiazide 20/12.5 daily and at enolol 100 mg daily. PROCEDURES DONE DURING ADMISSION: The patient had a cervical mediastinal exploration and the patient had an MRI of the brain showing 2 calvarial bone lesions, one on the right parietal and one on the l eft parietal lobe, very suspicious for lytic metastatic lesions. CODE STATUS: Full code. ALLERGIES: No known drug allergies. HOSPITAL COURSE: Ms. Conn is a pleasant 73-year-old female who presented to the emergency room wit h complaints of abdominal pain. She was seen at the [facility] where a CT scan was done of t he abdomen and pelvis that had demonstrated a 10 x 7 x 7 cm mediastinal mass with a possible subcarin al renal mass versus an enlarged lymph node. She was transferred to our facility for further evaluat ion. She was seen by Thoracic [facility] Vascular Surgery and underwent a cervical mediastinoscopy with bio psy of the affected area, the pathology of which on frozen section appeared to be an oat cell carcino ma of the lung. Post procedure, the patient had no significant problems. An MRI of the brain was do ne with the above findings and she was subsequently able to be discharged home and have close outpati ent followup.
== END 2018-08-10 14:14 | disposition home or self-care (01) | DRG 830 ==
LOC: ERS 21:44 → ONC 08-06 02:14 → OBSVTOIN 08-07 06:21
PROVIDERS: ADMIT Internal Medicine; ATTEND Internal Medicine
PROC: 07B74ZX Excision of Thorax Lymphatic, Percutaneous Endoscopic Approach, Diagnostic (ICD-10-PCS; principal; 2018-08-08)
DX: C7A.1 Malignant poorly differentiated neuroendocrine tumors (principal); E87.6 Hypokalemia; I10 Essential (primary) hypertension; E78.5 Hyperlipidemia, unspecified; F17.210 Nicotine dependence, cigarettes, uncomplicated
CPT/HCPCS: 36415; 70553; 71045; 80053; 80074; 83615; 84165; 85025; 85610; 85730; 88184; 88305; 88331; 88341; 88342; 94760; 96374; A4216; J0360; J1100; J2001; J2250; J2270; J2704; J3010; J3480